=== PATIENT | female | born 1975 | race Caucasian/White ===

== ENCOUNTER 2018-03-06 19:47 | Emergency (ER) | payer OTHER ==
[~2018-03-06] VITALS: Ht 157.5 cm; Wt 97.7 kg
[~2018-03-06 19:47] MED LIST: CITA-106 PO
[2018-03-06] MEDS ORDERED: CYAN1000I IM (19:58)
[2018-03-06] MEDS ORDERED: CHOL200016 PO (19:58)
[2018-03-06] MEDS ORDERED: ATOR20TA86 PO (19:58)
[2018-03-06] MEDS ORDERED: TraMADol HCL 50 MG TABLET PO ONE (20:45)
[2018-03-06] MEDS ORDERED: CIPROFLOXACIN HCL 250 MG TABLET PO ONE (21:15)
[2018-03-06 21:39] VITALS: BP 127/79
== END 2018-03-06 21:48 | disposition home or self-care (01) ==
LOC: EMS 19:48
DX: S60.311A Abrasion of right thumb, initial encounter (principal); E78.00 Pure hypercholesterolemia, unspecified; Z88.5 Allergy status to narcotic agent; Z88.6 Allergy status to analgesic agent; Z88.8 Allergy status to other drugs, medicaments and biological substances; Z91.040 Latex allergy status; W54.0XXA Bitten by dog, initial encounter; Y93.89 Activity, other specified; Y92.89 Other specified places as the place of occurrence of the external cause; Y99.8 Other external cause status
CPT/HCPCS: 99284

== ENCOUNTER → 2019-06-27 | Outpatient (CLI) | payer OTHER ==
[~2019-06-27] MED LIST changes: +ATOR20TA86 PO; +CHOL200059 PO; +CYAN1000I IM
[2019-06-27 11:04] LABS: BASOPHILS % (AUTO) 0.6 % (0.0-2.0); EOSINOPHILS % (AUTO) 2.7 % (1.0-6.0); HEMATOCRIT 42.9 % (36-46); HEMOGLOBIN 14.5 g/dL (12.0-16.0); LYMPHOCYTES # (AUTO) 1.8 K/uL (1.0-4.8); LYMPHOCYTES % (AUTO) 24.8 % (22.0-44.0); MEAN CORPUSCULAR HEMOGLOBIN 31.7 pg (26.0-34.0); MEAN CORPUSCULAR HGB CONC 33.9 G/dL (31.0-37.0); MEAN CORPUSCULAR VOLUME 94 fL (80-100); MONOCYTES # (AUTO) 0.5 K/uL (0.1-1.0); MONOCYTES % (AUTO) 7.3 % (2.0-9.0); NEUTROPHILS # (AUTO) 4.6 K/uL (1.8-7.7); NEUTROPHILS % (AUTO) 64.6 % (40.0-70.0); PLATELET COUNT (AUTO) 233 K/uL (150-450); RED BLOOD CELL COUNT(AUTO) 4.58 MIL/uL (4.00-5.20); RED CELL DISTRIBUTION WIDTH 12.3 % (11.5-14.5)
[2019-06-27 11:21] LABS: ALANINE AMINOTRANSFERASE 29 U/L (12-78); ALKALINE PHOSPHATASE 99 U/L (46-116); ANION GAP 7 mmol/L (8-16); ASPARTATE AMINOTRANSFERASE 18 U/L (15-37); BILIRUBIN,TOTAL 0.5 mg/dL (0.1-1.0); CARBON DIOXIDE 28 mmol/L (22-29); CHLORIDE 105 mmol/L (98-107); GLOMERULAR FILTR. RATE CALC > 60 mL/min (>60); GLUCOSE,RANDOM 105 mg/dL (70-110); POTASSIUM 3.4 mmol/L (3.5-5.1); SODIUM SERUM 140 mmol/L (136-145); TOTAL PROTEIN, SERUM 6.7 g/dL (6.4-8.2); UREA NITROGEN, BLOOD 3 mg/dL (7-18)
== END | disposition home or self-care (01) ==
LOC: MSR 09:32
PROVIDERS: ATTEND Podiatrist Foot & Ankle Surgery
DX: Z01.818 Encounter for other preprocedural examination (principal); Z01.812 Encounter for preprocedural laboratory examination; L60.0 Ingrowing nail; Z72.0 Tobacco use

== ENCOUNTER 2019-06-29 05:40 | Day surgery (SDC) | payer OTHER ==
[~2019-06-29] VITALS: Ht 160 cm; Wt 91.4 kg
[2019-06-29] MEDS ORDERED: RINGERS SOLUTION,LACTATED 1,000 ML IV ONE ×2 (05:48→06:00)
[2019-06-29] MEDS ORDERED: LIDOCAINE/PF 1% 30 ML VIAL ONE (06:36)
[2019-06-29] MEDS ORDERED: BUPIVACAINE HCL/PF 0.5% 30 ML VIAL ONE (06:36)
[2019-06-29] MEDS ORDERED: BACITRACIN 28.4 GM OINTMENT TP ONE (06:37)
[2019-06-29] MEDS ORDERED: MEPERIDINE-PF 25 MG/ML VIAL IVP PRN (07:45)
[2019-06-29] MEDS ORDERED: FentaNYL CITRATE-PF 100 MCG/2 ML VIAL IVP PRN (07:45)
[2019-06-29] MEDS ORDERED: OXYGEN THERAPY IH SCH (08:00)
[2019-06-29] MEDS ORDERED: ONDANSETRON HCL 4 MG/2 ML VIAL ONE (08:13)
[2019-06-29] MEDS ORDERED: ONDANSETRON HCL 4 MG/2 ML VIAL IVP PRN (08:15)
[2019-06-29] MEDS ORDERED: 0.9% SODIUM CHLORIDE 10 ML VIAL IVP ONE (12:00)
[2019-06-29] MEDS ORDERED: MIDAZOLAM HCL 2 MG/2 ML VIAL IVP ONE (12:00)
[2019-06-29] MEDS ORDERED: FentaNYL CITRATE-PF 100 MCG/2 ML VIAL IVP ONE (12:00)
[2019-06-29] MEDS ORDERED: PROPOFOL 1% 20 ML VIAL IVP ONE (12:00)
== END 2019-06-29 09:40 | disposition home or self-care (01) ==
LOC: SURGERY 05:40
PROVIDERS: ATTEND Podiatrist Foot & Ankle Surgery
DX: L60.0 Ingrowing nail (principal); F32.9 Major depressive disorder, single episode, unspecified; F17.210 Nicotine dependence, cigarettes, uncomplicated; Z79.899 Other long term (current) drug therapy; Z90.49 Acquired absence of other specified parts of digestive tract; Z90.711 Acquired absence of uterus with remaining cervical stump; Z88.6 Allergy status to analgesic agent; Z88.8 Allergy status to other drugs, medicaments and biological substances; Z91.030 Bee allergy status; Z91.040 Latex allergy status; Z98.890 Other specified postprocedural states
CPT/HCPCS: 11750; 88302; 88312; J0690; J2250; J2405; J2704; J3010; J3490 ×2; J7120

== ENCOUNTER 2019-07-07 21:38 | Emergency (ER) | payer OTHER ==
[~2019-07-07] VITALS: Ht 160 cm; Wt 91.4 kg
[2019-07-07] MEDS ORDERED: KETOROLAC TROMETHAMINE 30 MG/ML VIAL IVP ONE ×2 (22:30→23:30)
[2019-07-07] MEDS ORDERED: ACETAMINOPHEN 500 MG TABLET PO ONE (22:30)
[2019-07-07 23:03] LABS: BASOPHILS % (AUTO) 0.5 % (0.0-2.0); EOSINOPHILS % (AUTO) 2.8 % (1.0-6.0); HEMATOCRIT 41.9 % (36-46); HEMOGLOBIN 14.5 g/dL (12.0-16.0); LYMPHOCYTES # (AUTO) 3.3 K/uL (1.0-4.8); LYMPHOCYTES % (AUTO) 34.2 % (22.0-44.0); MEAN CORPUSCULAR HEMOGLOBIN 32.3 pg (26.0-34.0); MEAN CORPUSCULAR HGB CONC 34.6 G/dL (31.0-37.0); MEAN CORPUSCULAR VOLUME 94 fL (80-100); MONOCYTES # (AUTO) 0.8 K/uL (0.1-1.0); MONOCYTES % (AUTO) 8.6 % (2.0-9.0); NEUTROPHILS # (AUTO) 5.2 K/uL (1.8-7.7); NEUTROPHILS % (AUTO) 53.9 % (40.0-70.0); PLATELET COUNT (AUTO) 236 K/uL (150-450); RED BLOOD CELL COUNT(AUTO) 4.48 MIL/uL (4.00-5.20); RED CELL DISTRIBUTION WIDTH 12.7 % (11.5-14.5)
[2019-07-07 23:37] LABS: CALCIUM, TOTAL 9.7 mg/dL (8.8-10.5); CREATININE 1.03 mg/dL (0.60-1.30); POTASSIUM 3.6 mmol/L (3.5-5.1)
[2019-07-08] MEDS ORDERED: HYDROCODONE/ACETAMINOPHEN 10-325 MG TABLET PO ONE (01:45)
[2019-07-08 02:28] VITALS: BP 145/78
[2019-07-08] MEDS ORDERED: CEPHALEXIN MONOHYDRATE 500 MG CAPSULE PO ONE (02:30)
== END 2019-07-08 02:36 | disposition home or self-care (01) ==
LOC: EMS 21:42
DX: G89.18 Other acute postprocedural pain (principal); M79.674 Pain in right toe(s); R50.9 Fever, unspecified; E78.00 Pure hypercholesterolemia, unspecified; F41.9 Anxiety disorder, unspecified; F32.9 Major depressive disorder, single episode, unspecified; F17.210 Nicotine dependence, cigarettes, uncomplicated; Z90.49 Acquired absence of other specified parts of digestive tract; Z90.710 Acquired absence of both cervix and uterus; Z98.890 Other specified postprocedural states; Z79.899 Other long term (current) drug therapy; Z88.5 Allergy status to narcotic agent; Z88.6 Allergy status to analgesic agent; Z91.040 Latex allergy status; Z88.8 Allergy status to other drugs, medicaments and biological substances; Z91.030 Bee allergy status
CPT/HCPCS: 36415; 73630; 73660; 80048; 83605; 85025; 86140; 87040; 96374; 96376; 99284; J1885

== ENCOUNTER 2019-08-09 21:03 | Emergency (ER) | payer OTHER ==
[~2019-08-09] VITALS: Ht 157.5 cm; Wt 90.9 kg
[2019-08-09 21:32] VITALS: BP 141/86
== END 2019-08-09 23:00 | disposition left against medical advice (07) ==
LOC: EMS 21:04
DX: M79.605 Pain in left leg (principal); Z53.21 Procedure and treatment not carried out due to patient leaving prior to being seen by health care provider

== ENCOUNTER 2019-09-30 05:25 | Day surgery (SDC) | payer OTHER ==
[~2019-09-30] VITALS: Ht 160 cm; Wt 90.9 kg
[~2019-09-30 05:25] MED LIST changes: +CHOL200016 PO; -CHOL200059 PO
[2019-09-30] MEDS ORDERED: ONDANSETRON HCL 4 MG/2 ML VIAL IVP ONE (05:26)
[2019-09-30] MEDS ORDERED: FentaNYL CITRATE-PF 100 MCG/2 ML VIAL IVP ONE (05:26)
[2019-09-30] MEDS ORDERED: PROPOFOL 1% 20 ML VIAL IVP ONE (05:26)
[2019-09-30] MEDS ORDERED: MIDAZOLAM HCL 2 MG/2 ML VIAL IVP ONE (05:26)
[2019-09-30] MEDS ORDERED: METOCLOPRAMIDE HCL 5 MG/ML 2 ML VIAL IVP ONE (05:26)
[2019-09-30] MEDS ORDERED: DEXAMETHASONE SOD PHOS 4 MG/ML VIAL IVP ONE (05:26)
[2019-09-30] MEDS ORDERED: HydrALAZINE HCL 20 MG/ML VIAL IVP ONE (05:26)
[2019-09-30] MEDS ORDERED: ROCURONIUM BROMIDE 10 MG/ML 5 ML VIAL IVP ONE (05:26)
[2019-09-30] MEDS ORDERED: GLYCOPYRROLATE 0.2 MG/ML VIAL IM ONE (05:26)
[2019-09-30] MEDS ORDERED: NEOSTIGMINE METHYLSULFATE 1 MG/ML 10 ML VIAL IVP ONE (05:26)
[2019-09-30] MEDS ORDERED: LIDOCAINE/PF 2% 5 ML VIAL IM ONE (05:26)
[2019-09-30] MEDS ORDERED: RINGERS SOLUTION,LACTATED 1,000 ML IV ONE ×2 (05:33→06:00)
[2019-09-30 06:09] LABS: BASOPHILS % (AUTO) 1.2 % (0.0-2.0); EOSINOPHILS % (AUTO) 2.9 % (1.0-6.0); LYMPHOCYTES # (AUTO) 2.9 K/uL (1.0-4.8); LYMPHOCYTES % (AUTO) 36.7 % (22.0-44.0); MEAN CORPUSCULAR HEMOGLOBIN 32.2 pg (26.0-34.0); MEAN CORPUSCULAR VOLUME 92 fL (80-100); MONOCYTES # (AUTO) 0.6 K/uL (0.1-1.0); NEUTROPHILS # (AUTO) 4.2 K/uL (1.8-7.7); NEUTROPHILS % (AUTO) 52.2 % (40.0-70.0); PLATELET COUNT (AUTO) 219 K/uL (150-450); RED BLOOD CELL COUNT(AUTO) 4.66 MIL/uL (4.00-5.20); RED CELL DISTRIBUTION WIDTH 12.5 % (11.5-14.5)
[2019-09-30 06:20] LABS: CALCIUM, TOTAL 8.7 mg/dL (8.8-10.5); POTASSIUM 3.9 mmol/L (3.5-5.1)
[2019-09-30 06:26] LABS: ALBUMIN 3.6 g/dL (3.4-5.0); BILIRUBIN,TOTAL 0.3 mg/dL (0.1-1.0); TOTAL PROTEIN, SERUM 6.6 g/dL (6.4-8.2)
[2019-09-30] MEDS ORDERED: BUPIVACAINE HCL/PF 0.5% 30 ML VIAL ONE (06:36)
[2019-09-30] MEDS ORDERED: LIDOCAINE/PF 1% 30 ML VIAL ONE (06:36)
[2019-09-30] MEDS ORDERED: MEPERIDINE-PF 25 MG/ML VIAL IVP PRN (07:45)
[2019-09-30] MEDS ORDERED: FentaNYL CITRATE-PF 100 MCG/2 ML VIAL IVP PRN (07:45)
[2019-09-30] MEDS ORDERED: OXYGEN THERAPY IH SCH (08:00)
[2019-10-01] MEDS ORDERED: IBUP-2071 PO (08:06)
[2019-10-01] MEDS ORDERED: HYDR-4061 PO (08:06)
[2019-10-01] MEDS ORDERED: DIPH25 PO (08:06)
== END 2019-09-30 09:35 | disposition home or self-care (01) ==
LOC: SURGERY 05:25
PROVIDERS: ATTEND Podiatrist Foot & Ankle Surgery
DX: M20.41 Other hammer toe(s) (acquired), right foot (principal); Z88.8 Allergy status to other drugs, medicaments and biological substances; Z88.5 Allergy status to narcotic agent; Z91.040 Latex allergy status; Z91.030 Bee allergy status; E78.00 Pure hypercholesterolemia, unspecified; F32.9 Major depressive disorder, single episode, unspecified; F17.210 Nicotine dependence, cigarettes, uncomplicated; Z98.890 Other specified postprocedural states; Z90.710 Acquired absence of both cervix and uterus; Z90.49 Acquired absence of other specified parts of digestive tract
CPT/HCPCS: 28285; 36415; 73630; 80053; 85025; 88302; 88311; J0360; J0690; J1100; J2250; J2405; J2704; J2765; J3010; J3490 ×5; J7120

== ENCOUNTER 2019-10-01 07:57 | Emergency (ER) | payer OTHER ==
[~2019-10-01] VITALS: Ht 167.6 cm; Wt 90.9 kg
[~2019-10-01 07:57] MED LIST changes: -CHOL200016 PO; +CHOL200059 PO
[2019-10-01] MEDS ORDERED: HYDR-4061 PO (08:06)
[2019-10-01] MEDS ORDERED: DIPH25 PO (08:06)
[2019-10-01] MEDS ORDERED: IBUP-2071 PO (08:06)
[2019-10-01] MEDS ORDERED: HYDROmorphone 2 MG/ML SYRINGE IM ONE (08:30)
[2019-10-01 09:24] VITALS: BP 134/76
== END 2019-10-01 09:52 | disposition home or self-care (01) ==
LOC: EMS 07:58
DX: G89.18 Other acute postprocedural pain (principal); E78.00 Pure hypercholesterolemia, unspecified; F41.9 Anxiety disorder, unspecified; F32.9 Major depressive disorder, single episode, unspecified; F17.210 Nicotine dependence, cigarettes, uncomplicated; Z88.6 Allergy status to analgesic agent; Z88.5 Allergy status to narcotic agent; Z90.49 Acquired absence of other specified parts of digestive tract; Z90.710 Acquired absence of both cervix and uterus; Z91.040 Latex allergy status; Z88.8 Allergy status to other drugs, medicaments and biological substances; Z98.890 Other specified postprocedural states
CPT/HCPCS: 96372; 99283; 99406; J1170

== ENCOUNTER 2019-12-27 19:22 | Emergency (ER) | payer OTHER ==
[~2019-12-27] VITALS: Ht 160 cm; Wt 90.9 kg
[~2019-12-27 19:22] MED LIST changes: +CHOL200016 PO; -CHOL200059 PO; +DIPH25 PO; +HYDR-4061 PO; +IBUP-2071 PO
[2019-12-27] MEDS ORDERED: SODIUM CHLORIDE 0.9% 1,000 ML IV ONE (19:58)
[2019-12-27] MEDS ORDERED: KETOROLAC TROMETHAMINE 30 MG/ML VIAL IVP ONE (20:00)
[2019-12-27] MEDS ORDERED: METOCLOPRAMIDE HCL 5 MG/ML 2 ML VIAL IVP ONE (20:00)
[2019-12-27] MEDS ORDERED: DiphenhydrAMINE HCL 50 MG/ML VIAL IVP ONE (20:00)
[2019-12-27 21:01] VITALS: BP 133/74
== END 2019-12-27 21:09 | disposition home or self-care (01) ==
LOC: EMS 19:22
DX: G43.909 Migraine, unspecified, not intractable, without status migrainosus (principal); E78.00 Pure hypercholesterolemia, unspecified; F17.210 Nicotine dependence, cigarettes, uncomplicated; F32.9 Major depressive disorder, single episode, unspecified; F41.9 Anxiety disorder, unspecified; Z90.49 Acquired absence of other specified parts of digestive tract; Z90.710 Acquired absence of both cervix and uterus; Z98.890 Other specified postprocedural states; Z79.899 Other long term (current) drug therapy; Z88.5 Allergy status to narcotic agent; Z88.6 Allergy status to analgesic agent; Z88.8 Allergy status to other drugs, medicaments and biological substances; Z91.040 Latex allergy status; Z91.030 Bee allergy status
CPT/HCPCS: 96374; 96375; 99284; 99406; J1200; J1885; J2765; J7030

== ENCOUNTER 2020-05-15 05:39 | Day surgery (SDC) | payer OTHER ==
[2020-05-14 09:56] LABS: BASOPHILS % (AUTO) 0.7 % (0.0-2.0); EOSINOPHILS % (AUTO) 2.9 % (1.0-6.0); HEMATOCRIT 42.1 % (36-46); HEMOGLOBIN 14.7 g/dL (12.0-16.0); LYMPHOCYTES % (AUTO) 35.4 % (22.0-44.0); MEAN CORPUSCULAR HEMOGLOBIN 31.9 pg (26.0-34.0); MEAN CORPUSCULAR VOLUME 91 fL (80-100); MONOCYTES # (AUTO) 0.3 K/uL (0.1-1.0); MONOCYTES % (AUTO) 4.4 % (2.0-9.0); NEUTROPHILS # (AUTO) 3.3 K/uL (1.8-7.7); NEUTROPHILS % (AUTO) 56.6 % (40.0-70.0); PLATELET COUNT (AUTO) 204 K/uL (150-450); RED BLOOD CELL COUNT(AUTO) 4.62 MIL/uL (4.00-5.20); RED CELL DISTRIBUTION WIDTH 12.3 % (11.5-14.5)
[~2020-05-15] VITALS: Ht 158.8 cm; Wt 94.1 kg
[~2020-05-15 05:39] MED LIST changes: -CITA-106 PO; +CITA-144 PO; -HYDR-4061 PO; +RINGERS SOLUTION,LACTATED 1,000 ML IV ONE
[2020-05-15] MEDS ORDERED: KETOROLAC TROMETHAMINE 60 MG/2 ML VIAL IM ONE (05:40)
[2020-05-15] MEDS ORDERED: PROPOFOL 1% 20 ML VIAL IVP ONE (05:40)
[2020-05-15] MEDS ORDERED: LIDOCAINE/PF 2% 5 ML VIAL IM ONE (05:40)
[2020-05-15] MEDS ORDERED: RINGERS SOLUTION,LACTATED 1,000 ML IV ONE (05:46)
[2020-05-15] MEDS ORDERED: LIDOCAINE/PF 1% 30 ML VIAL ONE (06:37)
[2020-05-15] MEDS ORDERED: SODIUM CL IRRIG SOLN BAG 0 ML IRRIG ONE (06:37)
[2020-05-15] MEDS ORDERED: BUPIVACAINE HCL/PF 0.5% 30 ML VIAL ONE (06:37)
[2020-05-15] MEDS ORDERED: BACITRACIN 50,000 UNITS/VIAL ONE (06:38)
[2020-05-15] MEDS ORDERED: BACITRACIN 28.4 GM OINTMENT TP ONE (08:08)
[2020-05-15] MEDS ORDERED: OxyCODONE HCL/ACETAMINOPHEN 10-325 MG TABLET PO ONE (08:45)
[2020-05-15] MEDS ORDERED: MIDAZOLAM HCL 2 MG/2 ML VIAL IVP ONE (12:00)
[2020-05-15] MEDS ORDERED: FentaNYL CITRATE-PF 100 MCG/2 ML VIAL IV ONE (12:00)
== END 2020-05-15 10:05 | disposition home or self-care (01) ==
LOC: SURGERY 05:39
PROVIDERS: ATTEND Podiatrist Foot & Ankle Surgery
DX: L60.0 Ingrowing nail (principal); E78.00 Pure hypercholesterolemia, unspecified; Z68.35 Body mass index [BMI] 35.0-35.9, adult; F17.210 Nicotine dependence, cigarettes, uncomplicated; F32.9 Major depressive disorder, single episode, unspecified; Z98.890 Other specified postprocedural states; Z90.49 Acquired absence of other specified parts of digestive tract; Z88.6 Allergy status to analgesic agent; Z88.8 Allergy status to other drugs, medicaments and biological substances; Z91.030 Bee allergy status; Z11.59 Encounter for screening for other viral diseases; Z91.040 Latex allergy status; E66.01 Morbid (severe) obesity due to excess calories
CPT/HCPCS: 11750; 36415; 85025; 87635; 88302; 88311; 88312; J1885; J2250; J2704; J3010; J3490 ×3; J7120

== ENCOUNTER 2021-11-16 19:04 | Emergency (ER) | payer OTHER ==
[~2021-11-16] VITALS: Ht 162.6 cm; Wt 90.0 kg
[~2021-11-16 19:04] MED LIST changes: -RINGERS SOLUTION,LACTATED 1,000 ML IV ONE
[2021-11-16] MEDS ORDERED: PredniSONE 20 MG TABLET PO ONE (22:00)
[2021-11-16] MEDS ORDERED: EPIN0.3P3 IM (22:02)
[2021-11-16] MEDS ORDERED: PRED20 PO (22:02)
[2021-11-16 22:30] VITALS: BP 118/67
== END 2021-11-16 22:30 | disposition home or self-care (01) ==
LOC: EMS 19:06
DX: T78.1XXA Other adverse food reactions, not elsewhere classified, initial encounter (principal); F41.9 Anxiety disorder, unspecified; F32.9 Major depressive disorder, single episode, unspecified; E78.00 Pure hypercholesterolemia, unspecified; F17.210 Nicotine dependence, cigarettes, uncomplicated; Z88.5 Allergy status to narcotic agent; Z88.6 Allergy status to analgesic agent; Z88.8 Allergy status to other drugs, medicaments and biological substances; Z91.040 Latex allergy status; Z79.899 Other long term (current) drug therapy; X58.XXXA Exposure to other specified factors, initial encounter
CPT/HCPCS: 99283; J7512